=== PATIENT | female | born 1930 | race Caucasian/White ===

== ENCOUNTER → 2016-05-27 | Outpatient (CLI) | payer MEDICARE, OTHER ==
[~2016-05-27] MED LIST: ACETAMINOPHEN PO; ALDACTONE PO; ALLERGY RELIEF10 M1 PO; ALPRAZOLAM PO; AMARYL2 MG PO; ANUSOL SUPP1 SUPP PR; APRESOLINE PO; ASPIRIN ENTERI325 M1 PO; ASPIRIN81 M1 PO; ASPIRIN81 M2 PO; ASPIRIN81 MG PO; ASPIRINEC PO; ATENOLOL; ATENOLOL PO; AVANDIA PO; BENICAR HCT 40-1 TA1; BENICAR HCT 40-1 TA1 PO; BENICAR HCT 40/1 TAB PO; BENICAR PO; CARAFATE1 G; CIPRO PO; COATED ASPIRIN325 M1 PO; COREG PO; COREG3.125 MG PO; COZAAR PO; GLIMEPIRIDE1 M1 PO; GLIMEPIRIDE2 MG PO; GLUCOPHAGE XR500 MG; GLUCOPHAGE XR500 MG PO; HYDRALAZINE HCL25 MG PO; HYDRALAZINE HCL50 MG PO; HYDROCODONE-APA1 T44 PO; IMDUR-ER30 MG PO; ISOSORBIDE DINI30 MG PO; JANUMET 50/1000 PO; KEFLEX250 M1 PO; LASIX PO; LASIX20 MG PO; LEVAQUIN PO; LIDODERM30 EA TOP; LIPITOR PO; LIPITOR20 MG PO; LIPITOR40 MG PO; LOPRESSOR PO; LOTREL 5/10 MG1 CAP; LOTREL 5/10 MG1 CAP PO; MACRODANTIN PO; MAG-OX 400400 MG PO; MEDROL DOSEPAK4 MG PO; METFORMIN PO; METOPROLOL SUCC25 MG PO; METOPROLOL SUCC50 MG PO; METOPROLOL TART25 MG PO; MIRALAX17 GM PO; NEURONTIN PO; NEURONTIN300 MG PO; NEXIUM PO; NITROFURANTOIN100 M3 PO; NITROGLYCERIN0.4 MG SL; PATIENT'S PHARMACY; PERCOCET5/325 PO; PHENERGAN25 M1 PO; PHYSICIAN; PLAVIX PO; PREVACID SOLUTA30 MG PO; PROTONIX PO; PYRIDIUM PO; SENNA PO; SODIUM BICARBO650 MG PO; TEKTURNA HCT150/12.5 PO; TEKTURNA PO; TEKTURNA300 MG PO; TOPROL XL 50 MG50 MG PO; TRICOR; TYLENOL325 M1 PO; VICTOZA0.6 MG/0.1 SUBQ; ZANTAC PO
--- NOTE | ~2016-05-27 | CT4 ---
[facility] A Service of [facility] RADIOLOGY TEXT RESULTS PATIENT: JEWEL WOODWARD LOCATION: [facility] : [birth year] UNIT #: [id number] AGE: [address]: Tiffanie King MD SEX: F ORDER DR: [id number] [place] [id number] O MR#: [id number] Acc #: [id number] NAME: JEWEL WOODWARD : 1930 SEX: F STUDY DATE/TIME: 05/27/2016 13:19 UNIT: SCT ROOM: STUDY DESCRIPTION: CT Abd and Pelv Wo Cont Attending Physician: Tiffanie King M.D. Referring Physician: Tiffanie King M.D. Ordering Physician: Tiffanie King M.D. Primary Care Physician: Tiffanie King M.D. MEDICAL IMAGING REPORT This report is preliminary unless electronic signature is present. EXAM CT abdomen and pelvis without contrast. DATE OF EXAM 05/27/2016 INDICATIONS Right-sided abdominal pain, particularly right lower quadrant abdominal pain for the past 3-[address] of the abdomen and pelvis. COMPARISON 02/11/2014 TECHNIQUE NOTE: This CT exam was performed with one or more of the following radiation dose reduction techniques: automatic exposure control, adjustment of mA and/or kV according to patient size, and iterative reconstruction. FINDINGS ABDOMEN WITHOUT CONTRAST: Included lung bases are predominately clear. The liver, spleen, adrenal glands, pancreas unremarkable. Previous cholecystectomy. 3.6 cm cyst upper pole right kidney. 1.3 cm cyst lower pole left kidney. No radiodense ureteral calculus or hydronephrosis. Patient is status post right hemicolectomy. Moderate colonic stool left side of the colon. The bowel loops are nondilated. No inflammatory change seen in the right lower quadrant. PELVIS WITHOUT CONTRAST: Previous hysterectomy. No pelvic mass. No STS. [facility] A Service of [facility] RADIOLOGY TEXT RESULTS PATIENT: JEWEL WOODWARD LOCATION: [facility] : [birth year] UNIT #: [id number] AGE: [address]: Tiffanie King MD SEX: F ORDER DR: radiodense bladder calculus. No aggressive-appearing bone lesion. IMPRESSION 1. No clearly acute finding in the abdomen or pelvis. 2. Previous right hemicolectomy. Moderate amount of stool in the left side of the colon. 3. Renal cysts. Dictated by... Prince Magallon M.D. THIS IS AN ELECTRONICALLY VERIFIED REPORT Prince Magallon M.D. at 05/31/2016 7:02 AM SLOANE/chanelle TD: 05/27/2016 19:10 JOB #: [id number] MEDICAL IMAGING REPORT
== END | disposition home or self-care (01) ==
LOC: SCT 13:05
DX: R10.31 Right lower quadrant pain (principal); R11.2 Nausea with vomiting, unspecified; R19.7 Diarrhea, unspecified; C18.9 Malignant neoplasm of colon, unspecified; N28.1 Cyst of kidney, acquired; Z90.49 Acquired absence of other specified parts of digestive tract
CPT/HCPCS: 74176

== ENCOUNTER → 2016-06-29 | Outpatient (CLI) | payer MEDICARE, OTHER ==
[2016-06-29 11:36] LABS: URINE APPEARANCE HAZY; URINE BILIRUBIN NEG (NEG); URINE BLOOD NEG (NEG); URINE COLOR YELLOW; URINE GLUCOSE NEG (NORM); URINE KETONE NEG (NEG); URINE LEUKOCYTE ESTERASE 2+ (NEG); URINE NITRATE NEG (NEG); URINE PROTEIN NEG (NEG); URINE UROBILINOGEN 0.2 MG/DL (NORM)
[2016-06-29 11:58] LABS: MICRO INDICATED? YES; URINE SOURCE CLEAN CATCH
[2016-06-29 12:06] LABS: URINE BACTERIA 2+ (NEG); URINE SQUAMOUS EPITHELIAL CELL FEW /[HPF]; URINE WBC 100-200 /[HPF] (0-5)
== END | disposition home or self-care (01) ==
LOC: SLAB 11:17
PROVIDERS: Internal Medicine Nephrology
DX: N39.0 Urinary tract infection, site not specified (principal)
CPT/HCPCS: 81003

== ENCOUNTER → 2016-07-14 | Outpatient (CLI) | payer MEDICARE, OTHER ==
[2016-07-14 14:21] LABS: URINE APPEARANCE CLEAR; URINE BILIRUBIN NEG (NEG); URINE BLOOD NEG (NEG); URINE COLOR YELLOW; URINE GLUCOSE NEG (NORM); URINE KETONE NEG (NEG); URINE LEUKOCYTE ESTERASE 1+ (NEG); URINE NITRATE NEG (NEG); URINE PROTEIN NEG (NEG); URINE UROBILINOGEN 0.2 MG/DL (NORM)
[2016-07-14 14:34] LABS: MICRO INDICATED? YES; URINE SOURCE CLEAN CATCH
[2016-07-14 14:35] LABS: URINE BACTERIA 1+ (NEG); URINE GRANULAR CAST 0-2 /[HPF]; URINE HYALINE CAST 0-2 /[HPF]; URINE RBC 0-2 /[HPF] (0-2); URINE SQUAMOUS EPITHELIAL CELL FEW /[HPF]
== END | disposition home or self-care (01) ==
LOC: SLAB 13:55
PROVIDERS: Internal Medicine Nephrology
DX: N39.0 Urinary tract infection, site not specified (principal)
CPT/HCPCS: 36415; 81003; 87086